=== PATIENT | female | born 1970 | race Caucasian/White ===

== ENCOUNTER → 2018-02-16 | Outpatient (CLI) | payer BC | END | disposition home or self-care (01) | LOC: KCIC US 14:50 | DX: Z12.31 Encounter for screening mammogram for malignant neoplasm of breast (principal); N85.2 Hypertrophy of uterus | CPT/HCPCS: 76830; 76856; 77067 ==

== ENCOUNTER → 2020-10-10 | Outpatient (CLI) | payer BC ==
[2018-03-08 15:00] VITALS: BP 102/64
[~2020-10-10] MED LIST: ERGO500027 PO; EZET1TAB35 PO; FURO20TA3 PO; HYDR-3164 PO; METF500T16 PO; NAPR-683 PO; NAPR500T8 PO; POTASSIUM CHLO10 ME1 PO; SERT50TA PO; THYR30TA PO; TRIA1CAP3 PO
--- NOTE | 2020-10-10 15:42 | KCIC ---
Single AP view the pelvis without comparison for rheumatoid arthritis, osteoarthritis, pain. FINDINGS: There is a single surgical clip seen in the pelvis. A few phleboliths are evident. There is no fracture or acute osseous abnormality. Joints and soft tissues are otherwise unremarkable. IMPRESSION: 1. No acute osseous abnormality. Electronically signed by: Vasquez Cheng MD (10/10/2020 3:39 PM) [email or web address]
--- NOTE | 2020-10-10 15:43 | KCIC ---
2 views the bilateral hands without comparison for rheumatoid arthritis, osteoarthritis, pain in unspecified joints. FINDINGS: There is no fracture or acute osseous abnormality identified. The joints and soft tissues are essentially unremarkable, though there is a subtle amount of osteoarthritis involving the first interphalangeal joint of the left hand. Small dystrophic calcification is seen alongside the joint at this location. Similar mild degenerative changes are seen involving the fifth proximal interphalangeal joint of the right hand. No other degenerative changes. IMPRESSION: 1. No acute osseous abnormality. 2. Mild osteoarthritis involving the left first interphalangeal joint and the right fifth proximal interphalangeal joint. Electronically signed by: Vasquez Chneg MD (10/10/2020 3:41 PM) [email or web address]
--- NOTE | 2020-10-10 15:44 | KCIC ---
3 views the bilateral knees without comparison for rheumatoid arthritis, osteoporosis, pain. FINDINGS: There is no fracture, dislocation, or acute osseous abnormality involved in either knee. Joints and soft tissues are grossly unremarkable. No suprapatellar joint effusions. IMPRESSION: 1. No acute osseous abnormality of either knee, and no significant arthrosis. Electronically signed by: Vasquez Cheng MD (10/10/2020 3:41 PM) [email or web address]
== END ==
LOC: KCIC 14:38
PROVIDERS: ATTEND Nurse Practitioner Family
DX: M19.042 Primary osteoarthritis, left hand (principal); M19.041 Primary osteoarthritis, right hand; M17.0 Bilateral primary osteoarthritis of knee; I87.8 Other specified disorders of veins; D72.819 Decreased white blood cell count, unspecified; M05.70 Rheumatoid arthritis with rheumatoid factor of unspecified site without organ or systems involvement; M19.91 Primary osteoarthritis, unspecified site; M25.541 Pain in joints of right hand; Z79.1 Long term (current) use of non-steroidal anti-inflammatories (NSAID); Z68.39 Body mass index [BMI] 39.0-39.9, adult
CPT/HCPCS: 72170; 73120; 73562